=== PATIENT | female | born 1995 | race Caucasian/White ===

== ENCOUNTER 2020-02-10 10:28 | Inpatient (IN) | payer MEDICAID ==
[~2020-02-10] VITALS: Ht 162.6 cm; Wt 66.3 kg
[2020-02-10 14:38] VITALS: BP 102/77
[2020-02-10] MEDS ORDERED: OLANZapine 5 MG RAPDIS TABLET PO PRN (15:30)
[2020-02-10] MEDS ORDERED: TUBERCULIN, PURIFIED PROTEIN DERIVATIVE 5 TU/0.1 ML SYRINGE ID ONE (15:30)
[2020-02-10] MEDS ORDERED: MAG HYDROX/AL HYDROX/SIMETH ES 30 ML SUSPENSION UDCUP PO PRN (15:30)
[2020-02-10] MEDS ORDERED: GuaiFENesin/D-METHORPHAN [SUGAR-FREE] 200-20MG/10 ML SYRUP UDCUP PO PRN (15:30)
[2020-02-10] MEDS ORDERED: PROMETHAZINE HCL 25 MG TABLET PO PRN (15:30)
[2020-02-10] MEDS ORDERED: MAGNESIUM HYDROXIDE SUSPENSION 30 ML UDCUP PO PRN (15:30)
[2020-02-10] MEDS ORDERED: LOPERAMIDE HCL 2 MG CAPSULE PO PRN (15:30)
[2020-02-10] MEDS ORDERED: HydrOXYzine PAMOATE 50 MG CAPSULE PO PRN (15:30)
[2020-02-10] MEDS ORDERED: LORazepam 2 MG TABLET PO PRN (15:30)
[2020-02-10] MEDS ORDERED: DIVA-112 PO (15:31)
[2020-02-10 16:46] VITALS: BP 117/68
[2020-02-10] MEDS: THIAMINE 100 MG TABLET PO SCH (17:32)
[2020-02-10] MEDS: DIVALPROEX SODIUM 500 MG ER TABLET PO SCH (20:12)
[2020-02-10] MEDS: OLANZapine 5 MG RAPDIS TABLET PO SCH (20:12)
[2020-02-10] MEDS: ZOLPIDEM TARTRATE 10 MG TABLET PO PRN (23:07)
[2020-02-10] MEDS: ACETAMINOPHEN 325 MG TABLET PO PRN (23:08)
[2020-02-11 00:39] VITALS: BP 112/69
[2020-02-11] MEDS: ACETAMINOPHEN 325 MG TABLET PO PRN (03:14)
[2020-02-11 08:51] VITALS: BP 134/70
[2020-02-11] MEDS: NICOTINE 21 MG/24 HOUR PATCH TD SCH (09:00)
[2020-02-11] MEDS: FLUoxetine HCL 20 MG CAPSULE PO SCH (09:52)
[2020-02-11] MEDS: MULTIVITAMINS WITH MINERALS, THERAPEUTIC TABLET PO SCH (09:52)
[2020-02-11] MEDS: THIAMINE 100 MG TABLET PO SCH ×2 (09:52→16:13)
[2020-02-11] MEDS: NALTREXONE HCL 50 MG TABLET PO SCH (09:52)
[2020-02-11] MEDS: FOLIC ACID 1 MG TABLET PO SCH (09:52)
[2020-02-11 16:34] VITALS: BP 101/64
[2020-02-11] MEDS ORDERED: OLAN5TAB30 PO (17:04)
[2020-02-11] MEDS ORDERED: DIVA-80 PO (17:04)
[2020-02-11] MEDS ORDERED: FLUO-191 PO (17:04)
[2020-02-11] MEDS ORDERED: NALT50TA PO (17:04)
[2020-02-11] MEDS: DIVALPROEX SODIUM 500 MG ER TABLET PO SCH (20:15)
[2020-02-11] MEDS: OLANZapine 5 MG RAPDIS TABLET PO SCH (20:16)
[2020-02-12 00:04] VITALS: BP 112/76
[2020-02-12] MEDS: ACETAMINOPHEN 325 MG TABLET PO PRN (00:22)
[2020-02-12] MEDS: ZOLPIDEM TARTRATE 10 MG TABLET PO PRN (00:22)
[2020-02-12 08:19] VITALS: BP 123/63
[2020-02-12] MEDS: MULTIVITAMINS WITH MINERALS, THERAPEUTIC TABLET PO SCH (08:53)
[2020-02-12] MEDS: NICOTINE 21 MG/24 HOUR PATCH TD SCH (08:53)
[2020-02-12] MEDS: THIAMINE 100 MG TABLET PO SCH (08:53)
[2020-02-12] MEDS: FLUoxetine HCL 20 MG CAPSULE PO SCH (08:54)
[2020-02-12] MEDS: FOLIC ACID 1 MG TABLET PO SCH (08:54)
[2020-02-12] MEDS: NALTREXONE HCL 50 MG TABLET PO SCH (08:54)
== END 2020-02-12 12:50 | disposition home or self-care (01) | DRG 885 ==
LOC: B2S 15:16
PROVIDERS: ADMIT Psychiatry & Neurology Psychiatry; ATTEND Psychiatry & Neurology Psychiatry
DX: F25.9 Schizoaffective disorder, unspecified (principal); R45.851 Suicidal ideations; Z81.8 Family history of other mental and behavioral disorders; Z59.0 Homelessness; Z91.19 Patient's noncompliance with other medical treatment and regimen
CPT/HCPCS: 87081; 90749; Z7610